=== PATIENT | male | born 1980 ===

== ENCOUNTER 2017-04-25 15:42 | Emergency (ER) | payer MEDICAID ==
[2017-04-25 16:12] VITALS: BP 119/84
--- NOTE | 2017-04-25 16:41 | ED PDOC ---
HPI: General Adult Time Seen by Provider: 04/25/17 16:12 Chief Complaint (Nursing): Flu-like Symptoms Chief Complaint (Provider): Flu-like Symptoms History Per: Patient History/Exam Limitations: no limitations Current Symptoms Are (Timing): Still Present Additional Complaint(s): 37 y/o male presents to the emergency department with a complaint of a fever, body aches, sore throat, and cough since 04/23/2017. Patient reports taking Theraflu around 07:30 this morning which did not help. He denies nausea, vomiting, or diarrhea. Past Medical History Reviewed: Historical Data, Nursing Documentation, Vital Signs Vital Signs: Last Vital Signs Temp 102 F H 04/25/17 16:37 Pulse 123 H 04/25/17 16:06 Resp 16 04/25/17 16:06 BP 119/84 04/25/17 16:06 Pulse Ox 100 04/25/17 17:27 - Medical History PMH: Depression - Family History Family History: States: No Known Family Hx - Living Arrangements Living Arrangements: With Family - Social History Current smoker - smoking cessation education provided: Yes Alcohol: Social Drugs: Denies - Home Medications Home Medications: Ambulatory Orders Medication Instructions Recorded ALPRAZolam [Xanax] 0.25 mg PO Q6 PRN #10 tab 07/15/15 Albuterol HFA [Ventolin HFA 90 1 puff IH ASDIR #1 unit 04/25/17 mcg/actuation (8 g)] Azithromycin [Zithromax] 250 mg PO DAILY #6 tab 04/25/17 Benzonatate 200 mg PO TID PRN #20 capsule 04/25/17 Oseltamivir Phosphate [Tamiflu] 75 mg PO BID #10 capsule 04/25/17 - Allergies Allergies/Adverse Reactions: Allergies Allergy/AdvReac Type Severity Reaction Status Date / Time No Known Allergies Allergy Verified 04/25/17 16:06 Review of Systems ROS Statement: Except As Marked, All Systems Reviewed And Found Negative (As per HPI, otherwise negative) Constitutional: Positive for: Fever, Chills, Other (Body aches) ENT: Positive for: Nose Congestion, Throat Pain Respiratory: Positive for: Cough Gastrointestinal: Negative for: Nausea, Vomiting, Abdominal Pain, Diarrhea Neurological: Positive for: Headache. Negative for: Dizziness Physical Exam - Reviewed Nursing Documentation Reviewed: Yes Vital Signs Reviewed: Yes - Physical Exam Appears: Positive for: Well, Non-toxic, No Acute Distress Head Exam: Positive for: ATRAUMATIC, NORMAL INSPECTION, NORMOCEPHALIC Skin: Positive for: Normal Color. Negative for: Rash ENT: Positive for: Pharyngeal Erythema Cardiovascular/Chest: Positive for: Regular Rate, Rhythm. Negative for: Murmur Respiratory: Positive for: Normal Breath Sounds. Negative for: Accessory Muscle Use, Wheezing, Respiratory Distress Lymphatic: Positive for: Adenopathy (Bilateral anterior cervical lymphadenopathy ) Neurologic/Psych: Positive for: Alert, Oriented (x3) - ECG O2 Sat by Pulse Oximetry: 100 (RA) Pulse Ox Interpretation: Normal - Other Rad CXR X-Ray: Interpreted by Me, Viewed By Me X-Ray Interpretation: no acute finding Medical Decision Making Medical Decision Making: Time: 1617 Initial impression: 37 year old with flu like symptoms Temp of 102 upon arrival. Patient is well appearing, non-toxic appearing. Initial plan: --Chest x-ray --Tylenol 975 mg PO --Motrin 600 mg PO --Throat Culture --Influenza A B --Rapid Strep Group --Reevaluation Flu and strep are negative. CXR shows no acute finding. Patient is aware of all diagnostic testing results. He feels much better after fever medications administered. Repeat temperature 99.2 after meds given, repeat heart rate 88. Patient given prescriptions for Zithromax, Tamiflu, Tessalon Perles and Ventolin inhaler. Advised NSAIDs for fever and bodyaches, rest and fluids. Advised PMD or clinic follow up in 1-2 days. Scribe Attestation: Documented by Linda Josue, acting as a scribe for Ondina Reyes PA-C Provider Scribe Attestation: All medical record entries made by the Scribe were at my direction and personally dictated by me. I have reviewed the chart and agree that the record accurately reflects my personal performance of the history, physical exam, medical decision making, and the department course for this patient. I have also personally directed, reviewed, and agree with the discharge instructions and disposition. Disposition - Clinical Impression Clinical Impression: Upper respiratory infection, Influenza-like symptoms - Patient ED Disposition Is Patient to be Admitted: No Counseled Patient/Family Regarding: Studies Performed, Diagnosis, Need For Followup, Rx Given, Smoking Cessation - Disposition Referrals: [facility] [Outside] Disposition: Routine/Home Disposition Time: 17:50 Condition: STABLE Additional Instructions: Take [id number] Tylenol and Advil for fever and body aches. Drink plenty of fluids. Take prescription medications as directed. Follow up with primary doctor or clinic in 2-3 days. Prescriptions: Albuterol HFA [Ventolin HFA 90 mcg/actuation (8 g)] 1 puff IH ASDIR #1 unit Azithromycin [Zithromax] 250 mg PO DAILY #6 tab Benzonatate 200 mg PO TID PRN #20 capsule PRN Reason: Cough Oseltamivir Phosphate [Tamiflu] 75 mg PO BID #10 capsule Instructions: Upper Respiratory Infection (ED), Cold Symptoms (ED) Forms: [employer] ([place])
--- NOTE | 2017-04-25 16:56 | RAD ---
HISTORY: cough COMPARISON: Chest radiograph dated 10/25/2013. TECHNIQUE: Chest PA and lateral FINDINGS: LUNGS: No active pulmonary disease. PLEURA: No significant pleural effusion identified. No pneumothorax apparent. CARDIOVASCULAR: Normal. OSSEOUS STRUCTURES: No significant abnormalities. VISUALIZED UPPER ABDOMEN: Normal. OTHER FINDINGS: None. IMPRESSION: No active disease.
[2017-04-25 18:12] VITALS: PULSE 88; RESP 18; TEMP 99.2; O2SAT 99
== END 2017-04-25 18:12 | disposition home or self-care (01) ==
LOC: H.ER 15:42
DX: J06.9 Acute upper respiratory infection, unspecified (principal); F32.9 Major depressive disorder, single episode, unspecified; F17.200 Nicotine dependence, unspecified, uncomplicated

== ENCOUNTER 2017-11-01 19:52 | Emergency (ER) | payer MEDICAID ==
[2017-11-01 20:22] VITALS: BP 107/73; PULSE 73; RESP 18; TEMP 98.4; O2SAT 99
--- NOTE | 2017-11-01 20:44 | ED PDOC ---
HPI: Skin/Bite Injury Time Seen by Provider: 11/01/17 20:24 Chief Complaint (Nursing): Bite Chief Complaint (Provider): Bite History Per: Patient History/Exam Limitations: no limitations Onset/Duration Of Symptoms: Days (x2) Current Symptoms Are (Timing): Still Present Additional Complaint(s): 37 year old male presents to the emergency department for an evaluation of a dog bite to his left 2nd digit, onset 2 days ago. Patient states the dog belongs to his friend and it is UTD with all its vaccinations. PMD: Yolanda Garcia MD Past Medical History Reviewed: Historical Data, Nursing Documentation, Vital Signs Vital Signs: Last Vital Signs Temp 98.4 F 11/01/17 20:12 Pulse 73 11/01/17 20:12 Resp 18 11/01/17 20:12 BP 107/73 11/01/17 20:12 Pulse Ox 99 11/01/17 20:52 - Medical History PMH: Depression Denies: Diabetes, Hepatitis, HIV, HTN, Seizures, Sexually Transmitted Disease - Family History Family History: States: Unknown Family Hx - Immunization History Hx Tetanus Toxoid Vaccination: No Hx Influenza Vaccination: No Hx Pneumococcal Vaccination: No - Home Medications Home Medications: Ambulatory Orders Medication Instructions Recorded ALPRAZolam [Xanax] 0.25 mg PO Q6 PRN #10 tab 07/15/15 Albuterol HFA [Ventolin HFA 90 1 puff IH ASDIR #1 unit 04/25/17 mcg/actuation (8 g)] Azithromycin [Zithromax] 250 mg PO DAILY #6 tab 04/25/17 Benzonatate 200 mg PO TID PRN #20 capsule 04/25/17 Oseltamivir Phosphate [Tamiflu] 75 mg PO BID #10 capsule 04/25/17 Amoxicillin/Clavulanate [Augmentin 1 tab PO BID #20 tab 11/01/17 875 MG-125 MG] Ibuprofen [Motrin Tab] 800 mg PO Q6H PRN #20 tab 11/01/17 - Allergies Allergies/Adverse Reactions: Allergies Allergy/AdvReac Type Severity Reaction Status Date / Time No Known Allergies Allergy Verified 04/25/17 16:06 Review of Systems ROS Statement: Except As Marked, All Systems Reviewed And Found Negative Musculoskeletal: Positive for: Hand Pain (left 2nd digit bite) Physical Exam - Reviewed Nursing Documentation Reviewed: Yes Vital Signs Reviewed: Yes - Physical Exam Appears: Positive for: Well, Non-toxic, No Acute Distress Head Exam: Positive for: ATRAUMATIC, NORMAL INSPECTION, NORMOCEPHALIC Skin: Positive for: Normal Color Eye Exam: Positive for: Normal appearance ENT: Positive for: Normal ENT Inspection Neck: Positive for: Normal Respiratory: Positive for: Normal Breath Sounds. Negative for: Respiratory Distress Neurologic/Psych: Positive for: Alert (x3), Oriented. Negative for: Motor/ Sensory Deficits - ECG O2 Sat by Pulse Oximetry: 99 (RA) Pulse Ox Interpretation: Normal Medical Decision Making Medical Decision Making: Initial Plan: * Adacel 0.5ml IM * Motrin 600mg Wound irrigation, antibiotic ointment and dressing applied. Scribe Attestation: Documented by Nilsa Sanchez, acting as a scribe for Britney Yepez PA-C. Provider Scribe Attestation: All medical record entries made by the Scribe were at my direction and personally dictated by me. I have reviewed the chart and agree that the record accurately reflects my personal performance of the history, physical exam, medical decision making, and the department course for this patient. I have also personally directed, reviewed, and agree with the discharge instructions and disposition Disposition - Clinical Impression Clinical Impression: Animal bite wound - Patient ED Disposition Is Patient to be Admitted: No Counseled Patient/Family Regarding: Diagnosis, Need For Followup, Rx Given - Disposition Referrals: [facility] [Outside] Disposition: Routine/Home Disposition Time: 20:58 Condition: STABLE Prescriptions: Amoxicillin/Clavulanate [Augmentin 875 MG-125 MG] 1 tab PO BID #20 tab Ibuprofen [Motrin Tab] 800 mg PO Q6H PRN #20 tab PRN Reason: Pain Instructions: Animal Bites (DC) Forms: [email or web address] ([place])
[2017-11-01] MEDS ORDERED: Tdap Vaccine 0.5 ml Vial (10-64 yrs) IM ONE ×2 (20:47→21:02)
== END 2017-11-01 21:09 | disposition home or self-care (01) ==
LOC: H.ER 19:52
DX: S61.231A Puncture wound without foreign body of left index finger without damage to nail, initial encounter (principal); W54.0XXA Bitten by dog, initial encounter; Y92.89 Other specified places as the place of occurrence of the external cause; F32.9 Major depressive disorder, single episode, unspecified